=== PATIENT | male | born 1935 | race Caucasian/White ===

== ENCOUNTER 2020-07-07 13:51 | Inpatient (IN) ==
[2020-07-07] MEDS ORDERED: methylPREDNISolone 125 MG/2 ML VIAL IVP ONE (14:20)
[2020-07-07] MEDS ORDERED: Ipratropium/Albuterol Neb 3 ML IH ONE (14:20)
[2020-07-07] MEDS ORDERED: cefTRIAXone 1,000 MG in Water for inj. (sterile) 10 ML IVP ONE (14:27)
[2020-07-07] MEDS ORDERED: Azithromycin 500 MG in 0.9 % Sodium Chloride 250 ML IVPB ONE (14:28)
[2020-07-07 14:40] LABS: Basophils # 0.1 K/mcL (0.0-0.2); Basophils % 0.5 %; Eosinophils # 0.4 K/mcL (0.0-0.6); Eosinophils % 2.8 %; Hematocrit 43.8 % (37.5-50.1); Hemoglobin 13.9 g/dL (12.9-16.9); Immature Granulocytes % 0.4 % (0-4); Lymphocytes # 2.2 K/mcL (0.6-4.6); Lymphocytes % 16.5 %; Mean Corpuscular HGB Conc 31.7 g/dL (31.6-35.5); Mean Corpuscular Hemoglobin 27.7 pg (28.0-33.3); Mean Corpuscular Volume 87.4 fL (83.0-100.0); Mean Platelet Volume 9.8 fL (9.4-12.4); Monocytes # 1.4 K/mcL (0.0-1.3); Monocytes % 10.3 %; Neutrophils # 9.1 K/mcL (1.6-8.9); Platelet Count 235 K/mcL (140-400); Red Blood Count 5.01 M/mcL (4.19-5.50); Red Cell Distribution Width 13.6 % (11.5-14.5); Segmented Neutrophils % 69.5 %; White Blood Count 13.1 K/mcL (4.3-11.1)
[2020-07-07 14:49] LABS: BUN/Creatinine Ratio 15 (6-26); Blood Urea Nitrogen 17 mg/dL (8-23); Carbon Dioxide 27 mEq/L (23-29); Chloride 107 mEq/L (98-107); Glucose 115 mg/dL (70-105); Osmolality,Calculated 294 (280-300); Potassium 4.3 mEq/L (3.5-5.1); Sodium 141 mEq/L (136-145); Troponin I < 0.03 ng/mL (< 0.04); eGFR For African Americans > 60 (> 60); eGFR For Non-African Americans > 60 (> 60)
[2020-07-07] MEDS ORDERED: Aspirin 81 MG TAB.CHEW PO STA (14:56)
[2020-07-07] MEDS ORDERED: Mag Hydrox/Al Hydrox/Simeth 30 ML UDC PO PRN (16:16)
[2020-07-07] MEDS ORDERED: Acetaminophen 325 MG TABLET PO PRN (16:16)
[2020-07-07] MEDS ORDERED: Naloxone 0.4 MG/ML INJ IVP PRN (16:16)
[2020-07-07] MEDS ORDERED: MOM Conc 10 ML UD.LIQ PO PRN (16:16)
[2020-07-07] MEDS ORDERED: Ondansetron 4 MG/2 ML VIAL IVP PRN (16:16)
[2020-07-07] MEDS ORDERED: Albuterol 2.5 MG/3 ML NEBULIZER IH PRN (16:56)
[2020-07-07] MEDS ORDERED: *HR* Heparin 5,000 UNIT/ML VIAL IVP PRN (18:06)
[2020-07-07] MEDS ORDERED: *HR* Heparin 5,000 UNIT/ML VIAL IVP ONE (18:06)
[2020-07-07] MEDS ORDERED: Isovue-370 500 ML BOTTLE IVP ONE (18:10)
[2020-07-07] MEDS: MethylPREDNISolone 40 MG/ML VIAL IVP SCH ×2 (18:35→23:31)
[2020-07-07] MEDS ORDERED: Perflutren Lipid Microsphere 1.3 ML in 0.9 % Sodium Chloride 8.7 ML IVP PRN (18:53)
[2020-07-07] MEDS: Ipratropium/Albuterol Neb 3 ML IH SCH ×2 (18:54→22:29)
[2020-07-07] MEDS: Heparin 25,000UNIT/250ML 1/2NS 25,000 UNIT/250 ML IV.SOLN IVC SCH (19:12)
[2020-07-07] MEDS: DilTIAZem 50 MG/50 ML IV.SOLN IVC SCH (19:12)
[2020-07-07 19:39] LABS: Hematocrit 43.1 % (37.5-50.1); Hemoglobin 13.4 g/dL (12.9-16.9); Mean Corpuscular HGB Conc 31.1 g/dL (31.6-35.5); Mean Corpuscular Hemoglobin 27.2 pg (28.0-33.3); Mean Corpuscular Volume 87.6 fL (83.0-100.0); Mean Platelet Volume 9.6 fL (9.4-12.4); Platelet Count 204 K/mcL (140-400); Red Blood Count 4.92 M/mcL (4.19-5.50); Red Cell Distribution Width 13.5 % (11.5-14.5)
[2020-07-07 19:59] LABS: INR 1.3; Prothrombin Time 15.1 Seconds (9.4-12.1)
[2020-07-07 20:34] LABS: Heparin anti-factor XA UFH > 2.00 IU/mL (0.30-0.70)
[2020-07-07] MEDS ORDERED: *HR* Heparin 5,000 UNIT/ML VIAL SQ SCH (22:00)
[2020-07-07] MEDS ORDERED: Melatonin 3 MG TABLET PO ONE (22:18)
[2020-07-07] MEDS: Budesonide/Formoterol 160/4.5 1 PUFF INH IH SCH (22:29)
[2020-07-08] MEDS: DilTIAZem 50 MG/50 ML IV.SOLN IVC SCH (04:11)
[2020-07-08] MEDS: MethylPREDNISolone 40 MG/ML VIAL IVP SCH ×3 (04:11→21:04)
[2020-07-08] MEDS: Ipratropium/Albuterol Neb 3 ML IH SCH ×4 (04:39→22:44)
[2020-07-08 04:52] LABS: Hematocrit 41.1 % (37.5-50.1); Hemoglobin 13.2 g/dL (12.9-16.9); Mean Corpuscular HGB Conc 32.1 g/dL (31.6-35.5); Mean Corpuscular Hemoglobin 27.6 pg (28.0-33.3); Mean Corpuscular Volume 85.8 fL (83.0-100.0); Mean Platelet Volume 10.2 fL (9.4-12.4); Platelet Count 214 K/mcL (140-400); Red Blood Count 4.79 M/mcL (4.19-5.50); Red Cell Distribution Width 13.5 % (11.5-14.5)
[2020-07-08 05:13] LABS: BUN/Creatinine Ratio 17 (6-26); Blood Urea Nitrogen 31 mg/dL (8-23); Calcium 9.5 mg/dL (8.6-10.3); Carbon Dioxide 22 mEq/L (23-29); Chloride 104 mEq/L (98-107); Glucose 201 mg/dL (70-105); Magnesium 2.1 mg/dL (1.6-2.6); Osmolality,Calculated 298 (280-300); Potassium 4.2 mEq/L (3.5-5.1); Sodium 138 mEq/L (136-145); Troponin I < 0.03 ng/mL (< 0.04); eGFR For African Americans 45 (> 60); eGFR For Non-African Americans 37 (> 60)
[2020-07-08] MEDS: Azithromycin 500 MG in 0.9 % Sodium Chloride 250 ML IVPB SCH (07:38)
[2020-07-08] MEDS: cefTRIAXone 1,000 MG in Water for inj. (sterile) 20 ML IVP SCH (07:38)
[2020-07-08] MEDS: Metoprolol XL (24 HR) Succ 25 MG TAB.ER.24H PO SCH (09:29)
[2020-07-08] MEDS: Budesonide/Formoterol 160/4.5 1 PUFF INH IH SCH ×2 (10:14→22:43)
[2020-07-08 10:18] LABS: Thyroid Stimulating Hormone 0.508 mcIU/mL (0.340-5.600)
[2020-07-08 18:28] LABS: Protein/Creatinine Ratio,Urine 0.08 mg/mg (0.00-0.20)
[2020-07-08 18:40] LABS: Bilirubin,Urine Negative (Negative); Blood,Urine Small (Negative); Clarity,Urine Clear (Clear); Color,Urine Light-Yellow (Yellow); Glucose,Urine (UA) Normal (Normal); Hyaline Casts,Urine Few per lpf (None Seen); Ketones,Urine 10 mg/dL (Negative); Leukocyte Esterase,Urine Negative (Negative); Mucus,Urine Few per lpf (None-Few); Nitrite,Urine Negative (Negative); PH,Urine 5.5 pH Units (5.0-8.0); Protein,Urine Trace mg/dL (Neg-Trace); Specific Gravity,Urine > 1.030 (1.010-1.025); Urobilinogen,Urine Normal (Normal); WBC,Urine 0-3 per hpf (0-3)
[2020-07-08] MEDS: Heparin 25,000UNIT/250ML 1/2NS 25,000 UNIT/250 ML IV.SOLN IVC SCH (22:26)
[2020-07-09] MEDS: Ipratropium/Albuterol Neb 3 ML IH SCH ×4 (03:56→22:27)
[2020-07-09 05:09] LABS: Hematocrit 38.3 % (37.5-50.1); Hemoglobin 12.3 g/dL (12.9-16.9); Mean Corpuscular HGB Conc 32.1 g/dL (31.6-35.5); Mean Corpuscular Hemoglobin 28.1 pg (28.0-33.3); Mean Corpuscular Volume 87.4 fL (83.0-100.0); Mean Platelet Volume 10.1 fL (9.4-12.4); Platelet Count 194 K/mcL (140-400); Red Blood Count 4.38 M/mcL (4.19-5.50); Red Cell Distribution Width 13.9 % (11.5-14.5); White Blood Count 23.9 K/mcL (4.3-11.1)
[2020-07-09 05:25] LABS: Calcium 9.1 mg/dL (8.6-10.3)
[2020-07-09 05:26] LABS: Uric Acid 7.2 mg/dL (2.3-7.6)
[2020-07-09] MEDS: *HR* Heparin 5,000 UNIT/ML VIAL IVP PRN (05:45)
[2020-07-09] MEDS: Metoprolol XL (24 HR) Succ 25 MG TAB.ER.24H PO SCH (08:36)
[2020-07-09] MEDS: MethylPREDNISolone 40 MG/ML VIAL IVP SCH (08:37)
[2020-07-09] MEDS: cefTRIAXone 1,000 MG in Water for inj. (sterile) 20 ML IVP SCH (08:38)
[2020-07-09] MEDS: Azithromycin 500 MG in 0.9 % Sodium Chloride 250 ML IVPB SCH (08:38)
[2020-07-09] MEDS: Budesonide/Formoterol 160/4.5 1 PUFF INH IH SCH ×2 (10:39→22:22)
[2020-07-09] MEDS: Heparin 25,000UNIT/250ML 1/2NS 25,000 UNIT/250 ML IV.SOLN IVC SCH (13:13)
[2020-07-10 01:42] LABS: Hematocrit 39.6 % (37.5-50.1); Hemoglobin 12.6 g/dL (12.9-16.9); Mean Corpuscular HGB Conc 31.8 g/dL (31.6-35.5); Mean Corpuscular Hemoglobin 27.5 pg (28.0-33.3); Mean Corpuscular Volume 86.5 fL (83.0-100.0); Mean Platelet Volume 10.5 fL (9.4-12.4); Platelet Count 221 K/mcL (140-400); Red Blood Count 4.58 M/mcL (4.19-5.50); White Blood Count 23.6 K/mcL (4.3-11.1)
[2020-07-10 02:03] LABS: BUN/Creatinine Ratio 35 (6-26); Blood Urea Nitrogen 42 mg/dL (8-23); Calcium 9.2 mg/dL (8.6-10.3); Carbon Dioxide 21 mEq/L (23-29); Chloride 105 mEq/L (98-107); Creatine Kinase 284 Units/L (30-223); Glucose 129 mg/dL (70-105); Osmolality,Calculated 296 (280-300); Potassium 4.8 mEq/L (3.5-5.1); Sodium 137 mEq/L (136-145); eGFR For African Americans > 60 (> 60); eGFR For Non-African Americans 58 (> 60)
[2020-07-10] MEDS: Ipratropium/Albuterol Neb 3 ML IH SCH ×4 (04:06→21:53)
[2020-07-10] MEDS: Metoprolol XL (24 HR) Succ 25 MG TAB.ER.24H PO SCH (08:18)
[2020-07-10] MEDS: Azithromycin 500 MG in 0.9 % Sodium Chloride 250 ML IVPB SCH (08:19)
[2020-07-10] MEDS: cefTRIAXone 1,000 MG in Water for inj. (sterile) 20 ML IVP SCH (08:20)
[2020-07-10] MEDS ORDERED: MethylPREDNISolone 40 MG/ML VIAL IVP SCH (09:00)
[2020-07-10] MEDS: Budesonide/Formoterol 160/4.5 1 PUFF INH IH SCH ×2 (10:51→21:49)
[2020-07-10] MEDS: *HR* Heparin 5,000 UNIT/ML VIAL IVP PRN (22:20)
[2020-07-11] MEDS: Ipratropium/Albuterol Neb 3 ML IH SCH ×3 (03:51→15:39)
[2020-07-11] MEDS: Heparin 25,000UNIT/250ML 1/2NS 25,000 UNIT/250 ML IV.SOLN IVC SCH ×2 (04:15→14:43)
[2020-07-11 05:34] LABS: Hematocrit 41.8 % (37.5-50.1); Hemoglobin 12.9 g/dL (12.9-16.9); Mean Corpuscular HGB Conc 30.9 g/dL (31.6-35.5); Mean Corpuscular Hemoglobin 26.9 pg (28.0-33.3); Mean Corpuscular Volume 87.3 fL (83.0-100.0); Mean Platelet Volume 9.9 fL (9.4-12.4); Platelet Count 219 K/mcL (140-400); Red Blood Count 4.79 M/mcL (4.19-5.50); Red Cell Distribution Width 13.9 % (11.5-14.5); White Blood Count 18.5 K/mcL (4.3-11.1)
[2020-07-11] MEDS ORDERED: Metoclopramide 10 MG/2 ML VIAL IVP ONE (05:40)
[2020-07-11 05:55] LABS: BUN/Creatinine Ratio 30 (6-26); Blood Urea Nitrogen 39 mg/dL (8-23); Calcium 9.3 mg/dL (8.6-10.3); Carbon Dioxide 29 mEq/L (23-29); Chloride 105 mEq/L (98-107); Glucose 137 mg/dL (70-105); Osmolality,Calculated 304 (280-300); Potassium 4.6 mEq/L (3.5-5.1); Sodium 141 mEq/L (136-145); eGFR For African Americans > 60 (> 60); eGFR For Non-African Americans 53 (> 60)
[2020-07-11] MEDS ORDERED: predniSONE 20 MG TABLET PO SCH (09:00)
[2020-07-11] MEDS: Metoprolol XL (24 HR) Succ 25 MG TAB.ER.24H PO SCH (10:22)
[2020-07-11] MEDS: Azithromycin 500 MG in 0.9 % Sodium Chloride 250 ML IVPB SCH (10:23)
[2020-07-11] MEDS: cefTRIAXone 1,000 MG in Water for inj. (sterile) 20 ML IVP SCH (10:23)
[2020-07-11] MEDS: Budesonide/Formoterol 160/4.5 1 PUFF INH IH SCH (11:27)
[2020-07-11] MEDS ORDERED: 0.9 % Sodium Chloride 250 ML IVC SCH (14:45)
[2020-07-11 14:53] VITALS: BP 129/68
[2020-07-11] MEDS ORDERED: Metoprolol XL (24 HR) Succ 25 MG TAB.ER.24H PO SCH (21:00)
== END 2020-07-11 19:35 | disposition left against medical advice (07) | DRG 191 ==
LOC: 3BNU 13:51 → EMEROOARM 13:51 → 3BNU 17:02 → SUATTDRO 07-09 13:36
PROVIDERS: ADMIT Internal Medicine; ATTEND Nurse Practitioner